=== PATIENT | male | born 1970 | race Caucasian/White ===

== ENCOUNTER → 2017-11-13 16:38 | Outpatient (CLI) | payer OTHER, MEDICAID, SELFPAY ==
[2017-11-13 18:19] LABS: Free T4, Direct Thyroxine 0.94 ng/dL (0.78-2.19)
[2017-11-13 18:33] LABS: Thyroid Stimulating Hormone 0.59 uIU/mL (0.47-4.68)
== END ==
PROVIDERS: Visit Provider Internal Medicine Endocrinology, Diabetes & Metabolism
DX: E03.9 Hypothyroidism, unspecified (principal)
CPT/HCPCS: 36415; 84439; 84443

== ENCOUNTER → 2017-11-24 16:50 | Outpatient (CLI) | payer OTHER, MEDICAID, SELFPAY | PROVIDERS: Visit Provider Internal Medicine Endocrinology, Diabetes & Metabolism | DX: E29.1 Testicular hypofunction (principal); E03.9 Hypothyroidism, unspecified ==

== ENCOUNTER → 2017-12-11 16:58 | Outpatient (CLI) | payer OTHER, MEDICAID, SELFPAY ==
[2017-12-11 18:53] LABS: Testosterone 19.7 ng/dL (132-813)
== END ==
PROVIDERS: Visit Provider Internal Medicine Endocrinology, Diabetes & Metabolism
DX: E03.9 Hypothyroidism, unspecified (principal); E29.1 Testicular hypofunction
CPT/HCPCS: 36415; 84403

== ENCOUNTER → 2018-01-11 17:02 | Outpatient (CLI) | payer OTHER, MEDICAID, SELFPAY ==
[2018-01-14 10:45] LABS: Albumin 4.4 g/dL (3.6-5.1); Sex Hormone Binding Globulin 19 nmol/L (10-50); Testosterone, Bioavailable 158.5 ng/dL (110.0-575.0); Testosterone, Total 394 ng/dL (250-1100); Testosterone,Free 78.8 pg/mL (46.0-224.0)
== END ==
PROVIDERS: PCP Student in an Organized Health Care Education/Training Program; Visit Provider Internal Medicine Endocrinology, Diabetes & Metabolism
DX: E29.1 Testicular hypofunction (principal)
CPT/HCPCS: 36415; 82040; 84270; 84403

== ENCOUNTER → 2018-01-25 17:29 | Outpatient (CLI) | payer OTHER, MEDICAID, SELFPAY ==
[2018-01-29 00:39] LABS: Testosterone Free 73.5 pg/mL (35.0-155.0); Testosterone Total 356 ng/dL (250-1100)
== END ==
PROVIDERS: PCP Student in an Organized Health Care Education/Training Program; Visit Provider Internal Medicine
DX: E03.9 Hypothyroidism, unspecified (principal); E29.1 Testicular hypofunction
CPT/HCPCS: 36415; 84402; 84403

== ENCOUNTER → 2018-02-05 16:58 | Outpatient (CLI) | payer OTHER, MEDICAID, SELFPAY ==
[2018-02-09 15:32] LABS: Testosterone Free 69.2 pg/mL (35.0-155.0); Testosterone Total 347 ng/dL (250-1100)
== END ==
PROVIDERS: Family Provider Internal Medicine; PCP Student in an Organized Health Care Education/Training Program; Visit Provider Internal Medicine Endocrinology, Diabetes & Metabolism
DX: E03.9 Hypothyroidism, unspecified (principal); E29.1 Testicular hypofunction
CPT/HCPCS: 36415; 82533; 84402; 84403

== ENCOUNTER → 2018-03-23 16:57 | Outpatient (CLI) | payer OTHER, MEDICAID, SELFPAY ==
[2018-03-23 18:10] LABS: Thyroid Stimulating Hormone 2.49 uIU/mL (0.47-4.68)
[2018-03-25 18:27] LABS: Testosterone, Free 0.48 ng/dL (0.87-5.47)
== END ==
PROVIDERS: Family Provider Internal Medicine; PCP Student in an Organized Health Care Education/Training Program; Visit Provider Internal Medicine Endocrinology, Diabetes & Metabolism
DX: E29.1 Testicular hypofunction (principal); E03.9 Hypothyroidism, unspecified
CPT/HCPCS: 36415; 84402; 84443

== ENCOUNTER → 2018-05-24 17:50 | Outpatient (CLI) | payer OTHER, MEDICAID, SELFPAY ==
[2018-05-24 19:35] LABS: Thyroid Stimulating Hormone 1.16 uIU/mL (0.47-4.68)
[2018-05-30 14:36] LABS: Testosterone, Free 0.43 ng/dL (0.87-5.47)
== END ==
PROVIDERS: Family Provider Internal Medicine; PCP Student in an Organized Health Care Education/Training Program; Visit Provider Internal Medicine Endocrinology, Diabetes & Metabolism
DX: E03.9 Hypothyroidism, unspecified (principal); E29.1 Testicular hypofunction
CPT/HCPCS: 36415; 84402; 84443

== ENCOUNTER → 2019-07-14 17:50 | Outpatient (CLI) | payer OTHER, MEDICAID, SELFPAY ==
[2019-07-14 19:30] LABS: Alanine Aminotransferase 56 IU/L (<50); Albumin 4.6 g/dL (3.5-5.0); Albumin Globulin Ratio 1.3 (1.0-2.8); Alkaline Phosphatase 72 U/L (38-126); Aspartate Aminotransferase 44 IU/L (17-59); BUN Creatinine Ratio 32.5 (6-22); Bilirubin Total 0.4 mg/dL (0.2-1.3); Blood Urea Nitrogen 26 mg/dL (9-20); Calcium 9.7 mg/dL (8.4-10.2); Carbon Dioxide 29 mmol/L (22-32); Chloride 104 mmol/L (98-107); Estimated Glomerular Filt Rate > 60.0 mL/min (>60); Globulin 3.5 g/dL (1.7-4.1); Glucose 126 mg/dL (70-100); HEMOLYSIS < 15 (0-50); Potassium 4.4 mmol/L (3.4-5.1); Sodium 140 mmol/L (137-145); Total Protein 8.1 g/dL (6.3-8.2)
[2019-07-14 19:51] LABS: Hemoglobin A1C% w Est Avg Glu 5.7 % (4.0-6.0)
[2019-07-14 20:21] LABS: Testosterone 438 ng/dL (71.8-623)
[2019-07-14 20:47] LABS: Thyroid Stimulating Hormone 4.71 uIU/mL (0.47-4.68)
== END ==
PROVIDERS: Internal Medicine Endocrinology, Diabetes & Metabolism; Family Provider Internal Medicine; PCP Student in an Organized Health Care Education/Training Program; Referring Provider Neuromusculoskeletal Medicine & OMM; Visit Provider Neuromusculoskeletal Medicine & OMM
DX: E29.1 Testicular hypofunction (principal); E03.9 Hypothyroidism, unspecified; R73.09 Other abnormal glucose; R35.8 Other polyuria
CPT/HCPCS: 36415; 80053; 83036; 84403; 84443

== ENCOUNTER → 2020-07-10 16:03 | Outpatient (CLI) | payer OTHER, MEDICAID, SELFPAY ==
--- NOTE | 2020-07-10 16:07 | DIET.PN ---
Dietary Progress Note Assessment: 50y M referred to nutrition for help with metabolic disease and lymphedema. 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 Pt using sleeping pills and has been on injected testosterone x10y. Pt attends chiropractic visits 3x/w, has lymphatic manual drainage regularly. Pt does not plan to do competition lifting but wants to be healthy and ripped. Pt unable to sit during RD consult secondary to back pain and chair being uncomfortable. 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 BMI: 34 Labs: A1c 5.7 (1y ago) Usual Day: wakes 3pm 6-7pm 1 Premier protein shake and protein brownie bar *40-50g PRO workout bw 9:30-10:30pm- 2 days chest and back, 2d shoulders and arms super sets, drinks BCAAs and citruline, 3d/w cardio has 30g CHO as Karbolyn, and 40g PRO powder or whey isolate 11:30-midnight: 6oz turkey burger extra lean, 2 corn tortillas, 2 oz guacamole, salsa and 1 bag healthy pop popcorn 1am: quest bar (20g PRO), light and fit yogurt 12g PRO 6 leatha kisses about 3-4d/w 5am: 1 Algerian cheese slice 1.5c egg whites 1 egg 1.5oz turkey meat Goes to bed 6:30am feels rested, takes sleeping pills Drinks three 32oz montoya daily does eat apples a few times per week, likes lettuce in a salad but otherwise no intake fruits/veggies. Pt reports eating this way x5y RD Impression: Pt is consuming diet low in food and high in nutrition supplement products. Pt is very concerned about calorie levels, protein content, carbs, and performance, pt is less concerned about micronutrients, phytochemicals and fiber coming from whole food sources. Food recall shows intake of 200g+ of PRO/d. RD would like to encourage pt to consume more whole foods rather than supplements to support health and vitality. Nutrition Diagnosis: undesirable food choices r/t mixed messaging regarding dietary advice aeb pt consuming more supplements than food, little F/V, pt not seeing relief from lymphedema sx, pt has dx body dysmorphia. Interventions: 1. Discussed benefits of whole foods based diet and role of nutrition supplements in health. 2. Using Cardiometabolic functional food plan as a guide, educated pt on the role of a variety of foods in supporting metabolic health. Used this plan with handout on nutrition for lymphedema to identify areas to consider change in diet. Plan reccs no refined sugar, refined carbs, limiting ultra processed fats, 2g sodium limit, and incorporating more fresh fruits and vegetables. Pt willing to alternate oatmeal c almond butter with protein shake and brownie for breakfasts. Pt willing to cut workout time supplements in half. Pt willing to consider adding lettuce to lunch taco meal. Pt willing to find food based snack to have with yogurt rather than protein bar. Pt willing to sub mild cheddar or mozzarella in place of Algerian cheese at dinnertime. Monitoring/Evaluations: pt will call in 2w to report back dietary changes and if they are helping sx.
[2020-07-10 16:38] VITALS: BMI 34.8
== END ==
PROVIDERS: Family Provider Internal Medicine; PCP Student in an Organized Health Care Education/Training Program; Referring Provider Student in an Organized Health Care Education/Training Program; Visit Provider Student in an Organized Health Care Education/Training Program
DX: E88.9 Metabolic disorder, unspecified (principal); I89.0 Lymphedema, not elsewhere classified; E66.9 Obesity, unspecified; Z71.3 Dietary counseling and surveillance; Z68.34 Body mass index [BMI] 34.0-34.9, adult
CPT/HCPCS: 97802

== ENCOUNTER 2021-05-27 23:35 | Emergency (ER) | payer OTHER, MEDICAID, SELFPAY ==
[2021-05-27 23:49] VITALS: BP 144/87; PULSE 69; RESP 16; TEMP 37.2; O2SAT 99
[2021-05-28 00:03] LABS: COVID19 -Nasal RAPID POSITIVE (Negative)
--- NOTE | 2021-05-28 00:11 | ED_ITS ---
HPI - General Adult General Chief complaint: Upper Respiratory Symptoms Stated complaint: tired/eyes hurt/cough x7 days Time Seen by Provider: 05/27/21 23:44 Source: patient Mode of arrival: Ambulatory History of Present Illness HPI narrative: Patient is a 51-year-old male. On vaccinated against COVID. Is here for evaluation of 7 days of a cough, eye fatigue, feeling tired. No known sick contacts. No fevers. Has not tried anything for symptoms prior to arrival. Related Data Home Medications Medication Instructions Recorded Confirmed losartan 100 mg tablet 100 mg PO DAILY #30 tab 09/16/18 01/30/21 rivaroxaban 20 mg tablet 20 mg PO DAILY #30 tab 09/16/18 01/30/21 Respironics Dreamstation CPAP #1 ea 10/12/18 01/30/21 cyclobenzaprine 10 mg tablet 10 mg PO TID PRN 04/26/19 01/30/21 fluticasone propionate 50 1 spray NASAL ONCE PRN #16 gram 04/26/19 01/30/21 mcg/actuation nasal spray,suspension testosterone enanthate 200 mg/mL 50 mg IM 2XW 30 Days ml 04/26/19 01/30/21 intramuscular oil levothyroxine 200 mcg capsule 200 mcg PO DAILY 11/17/19 01/30/21 levothyroxine 25 mcg capsule 25 mcg PO DAILY 11/17/19 01/30/21 Previous Rx's Medication Instructions Recorded propranolol 20 mg tablet 20 - 40 mg PO BEDTIME #90 tab 12/24/20 quetiapine 25 mg tablet 25 mg PO BEDTIME PRN #30 tab 01/29/21 citalopram 40 mg tablet 40 mg PO DAILY #90 tab 02/14/21 trazodone 50 mg tablet 50 mg PO .COMPLEX PRN #60 tab 03/12/21 lorazepam 0.5 mg tablet See Rx Instructions PO DAILY PRN 05/15/21 #15 tab Allergies Allergy/AdvReac Type Severity Reaction Status Date / Time simvastatin [SIMVASTATIN] AdvReac Severe MM ACHES Verified 01/30/21 15:44 Review of Systems Constitutional Constitutional: Reports as per HPI and Reports system reviewed and no additional complaints, except as documented Eyes Eyes: Reports as per HPI and Reports system reviewed and no additional complaints, except as documented ENT Ears, Nose, Mouth, and Throat: Reports system reviewed and no additional complaints, except as documented Cardiovascular Cardiovascular: Reports system reviewed and no additional complaints, except as documented Respiratory Respiratory: Reports as per HPI and Reports system reviewed and no additional complaints, except as documented Gastrointestinal Gastrointestinal: Reports system reviewed and no additional complaints, except as documented Integumentary/Breasts Skin/Breast: Reports system reviewed and no additional complaints, except as documented Hematologic/Lymphatic On Anticoagulants: No Patient History Medical History Allergic rhinitis Essential hypertension Hyperlipidemia Hypogonadism in male Hypothyroidism Insomnia, psychophysiological Kidney stones Lumbar back pain 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) Obesity (BMI 30-39.9) Obstructive sleep apnea, adult Pulmonary embolus Varicose veins of both lower extremities Family History Father Age: 92 Diabetes mellitus Hypertension Mother Age: 88 Diabetes mellitus Heart disease Hypertension Social History marital status: number of children: 1 lives independently: Yes caregiver/support person: No education level: college Smoking Status: Never smoker Smoking Status: Never smoker Exam Initial Vital Signs Initial Vital Signs: Vital Signs Temperature 98.9 F 05/27/21 23:49 Pulse Rate 69 05/27/21 23:49 Respiratory Rate 16 05/27/21 23:49 Blood Pressure 144/87 H 05/27/21 23:49 Pulse Oximetry 99 05/27/21 23:49 HENMT Head: normal to inspection and normocephalic Eyes General: appearance normal, both eyes and all related structures Resp Effort & Inspection: normal respiratory effort Auscultation: clear to auscultation bilaterally Cardio Rate: regular rate Rhythm: regular rhythm Skin General: no rashes or lesions noted Neuro General: patient alert, patient awake and moves all extremities Extrem General: normal to inspection and capillary refill normal Psych Appearance: grossly normal Course Orders Ordered: ED Orders 05/27/21 23:48 COVID19 -Nasal swab/Pre-Proc Stat Vital Signs Vital signs: Vital Signs - 8 hr 05/27/21 23:49 Temperature 98.9 F Pulse Rate 69 Respiratory Rate 16 Blood Pressure 144/87 H Pulse Oximetry 99 Medical Decision Making Lab Data Labs: Lab Results 05/27/21 Range/Units 23:48 SARS-CoV-2 (PCR) Positive H (Negative) MDM Narrative Medical decision making narrative: Patient is COVID positive and this does explain his presenting symptoms. Respiratory distress. Not hypoxic. Clear lungs. No indication for antibiotics. He was informed of his positive result. He was given return precautions and follow-up instructions. He expressed understanding and agreement. Discharge Plan Departure Patient Disposition: Home Clinical Impression: COVID-19 Instructions: DI for COVID-19 (Suspected or Confirmed ) Activity Restrictions/Additional Instructions: Your COVID test today was positive. Continues take all of your medications as directed. Follow current CDC guidelines with regard to quarantine. Contact your primary doctor for a follow-up. Return to the emergency department for any new or worsening symptoms. Prescriptions: No Action losartan 100 mg tablet 100 mg PO DAILY Qty: 30 0RF Xarelto 20 mg tablet 20 mg PO DAILY Qty: 30 0RF fluticasone propionate 50 mcg/actuation spray,suspension 1 spray NASAL ONCE PRNQty: 16 0RF testosterone enanthate 200 mg/mL oil 50 mg IM 2XW 30 Days 0RF cyclobenzaprine 10 mg tablet 10 mg PO TID PRN0RF levothyroxine 200 mcg capsule 200 mcg PO DAILY 0RF levothyroxine 25 mcg capsule 25 mcg PO DAILY 0RF quetiapine 25 mg tablet 25 mg PO BEDTIME PRN (Reason: insomnia) Qty: 30 5RF propranolol 20 mg tablet 20 - 40 mg PO BEDTIME Qty: 90 1RF Rx Instructions: at bedtime for severe anxiety citalopram 40 mg tablet 40 mg PO DAILY Qty: 90 3RF trazodone 50 mg tablet 50 mg PO .COMPLEX PRN (Reason: anxiety) Qty: 60 5RF Rx Instructions: 50 mg PO PRN 1-2h before bedtime, and 50mg at bedtime lorazepam 0.5 mg tablet See Rx Instructions PO DAILY PRN (Reason: severe panic) Qty: 15 1RF Rx Instructions: 0.5mg-1mg PO daily PRN; avoid daily dosing which can cause worsening panic (DME) Respironics Dreamstation CPAP Qty: 1 0RF Dose Instruction: As directed Label Comments: Pressure: 8-14 cmH2O DME: [facility] Rx Instructions: As directed Referrals: Miscellaneous,Doctor, MD [Primary Care Provider] -
== END 2021-05-28 00:22 | disposition home or self-care (01) ==
PROVIDERS: Emergency Provider Emergency Medicine; Family Provider Internal Medicine
DX: U07.1 COVID-19 (principal)
CPT/HCPCS: 87635; 99281; 99282; C9803

== ENCOUNTER 2023-04-03 00:20 | Emergency (ER) | payer OTHER, MEDICAID, SELFPAY ==
[2023-04-03] VITALS (11 sets, daily range): BP systolic 111–147; BP diastolic 57–80; PULSE 72–83; RESP 16–24; TEMP 35.9–36.6; O2SAT 92–99; BMI 31.6
[2023-04-03] MEDS: ONDANSETRON 4 MG/2 ML INJ IV (00:35)
[2023-04-03] MEDS: SODIUM CHLORIDE 0.9% 1,000 ML 1000 ML IV (00:35)
[2023-04-03 00:40] LABS: Add Manual Diff / Slide Review NO; Basophils Absolute Auto 0 /uL (0-100); Basophils Percent Auto 0.1 % (0-2); Eosinophils Absolute Auto 100 /uL (0-450); Eosinophils Percent Auto 0.3 % (2-4); Lymphocytes Absolute Auto 700 /uL (1100-4500); Lymphocytes Percent Auto 3.8 % (25-40); Mean Corpuscular HGB Conc 32.6 % (30-36); Mean Corpuscular Hemoglobin 24.7 PG (26-34); Mean Corpuscular Volume 75.6 fL (80-100); Monocytes Absolute Auto 700 /uL (0-900); Monocytes Percent Auto 3.7 % (3-14); Neutrophils Absolute Auto 16800 /uL (1500-7000); Neutrophils Percent Auto 92.1 % (50-75); Platelet Count 234 X10^3/uL (150-400); Red Blood Cell Count 6.47 X10^6/uL (4.5-5.9); Red Cell Distribution Width 18.7 % (11.6-14.8); White Blood Cell Count 18.2 X10^3/uL (4.5-11.0)
--- NOTE | 2023-04-03 00:41 | ED_ITS ---
HPI - Nausea/Vomiting/Diarrhea General Chief complaint: Nausea/Vomiting/Diarrhea Stated complaint: syncope V/D Time Seen by Provider: 04/03/23 00:32 Source: patient and EMS Mode of arrival: EMS History of Present Illness HPI Narrative: Patient comes to the ED with sudden onset vomiting and diarrhea. Was in his usual state of health earlier today taking care of his father. He was on his way to the gym when he suddenly developed profuse sweats and he felt like he was going to black out so he went home and called the ambulance. He had a number of episodes of nonbloody diarrhea at home and then upon arrival of the paramedics he vomited a number of times. Nonbloody emesis. He has vague abdominal discomfort but no overt pain. No fever. Was well entirely earlier today. Gets lymphedema treatments with percussion and laser treatments and child care giver multiple times a week. Related Data Home Medications Medication Instructions Recorded Confirmed losartan 100 mg tablet 100 mg PO DAILY #30 tabs 09/16/18 01/31/22 rivaroxaban 20 mg tablet 20 mg PO DAILY #30 tabs 09/16/18 01/31/22 Respironics Dreamstation CPAP #1 ea 10/12/18 01/31/22 cyclobenzaprine 10 mg tablet 10 mg PO TID PRN 04/26/19 01/31/22 fluticasone propionate 50 1 spray intranasal ONCE PRN #16 04/26/19 01/31/22 mcg/actuation nasal grams spray,suspension testosterone enanthate 200 mg/mL 50 mg IM 2XW 30 days 04/26/19 01/31/22 intramuscular oil levothyroxine 200 mcg capsule 200 mcg PO DAILY 11/17/19 01/31/22 levothyroxine 25 mcg capsule 25 mcg PO DAILY 11/17/19 01/31/22 chlorthalidone 50 mg tablet 50 mg PO DAILY 11/05/21 01/31/22 tamsulosin 0.4 mg capsule 0.4 mg PO DAILY 11/05/21 01/31/22 Previous Rx's Medication Instructions Recorded citalopram 40 mg tablet 40 mg PO DAILY #90 tabs 01/16/23 quetiapine 25 mg tablet 25 mg PO BEDTIME PRN insomnia #30 03/23/23 tabs trazodone 50 mg tablet 50 mg PO .COMPLEX #60 tabs 03/23/23 lorazepam 0.5 mg tablet 0.5 mg PO DAILY PRN severe 04/01/23 insomnia #10 tabs Allergies Allergy/AdvReac Type Severity Reaction Status Date / Time simvastatin [SIMVASTATIN] AdvReac Severe MM ACHES Verified 04/03/23 00:40 Patient History Medical History Allergic rhinitis Essential hypertension Hyperlipidemia Hypogonadism in male Hypothyroidism Insomnia, psychophysiological Kidney stones 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 back pain 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 Normocephalic. EYES: Sclera are clear without icterus. ENT: No rhinorrhea. NECK: Supple. Full range of motion. CARDIOVASCULAR: Normal rate and rhythm without murmur gallop or rub. RESPIRATORY: Clear to auscultation. Breath sounds equal bilaterally. No wheezes, rales, or rhonchi. GASTROINTESTINAL: Abdomen soft, non-tender, nondistended. EXTREMITIES: No edema, full range of motion. No obvious trauma. BACK: Normal inspection, no CVA tenderness. NEURO: Nonfocal examination, normal speech, normal gait. SKIN: No rash or erythema of visible areas, somewhat mottled PSYCH: Normally oriented. Normal range of affect. Appropriate behavior Initial Vital Signs Initial Vital Signs: Vital Signs Pulse Rate 72 04/03/23 00:23 Respiratory Rate 21 04/03/23 00:23 Course Orders Ordered: ED Orders 04/03/23 00:27 EKG-12 Lead Stat 04/03/23 00:33 Complete Blood Count AUTO DIFF Stat Comprehensive Metabolic Panel Stat Lipase Stat 04/03/23 01:31 Blood Culture Stat Lactate (Lactic Acid) Stat Sodium Chloride (Normal Saline 0.9%) 1,000 mls @ 1,000 mls/hr IV BOLUS ONE Stop: 04/03/23 01:41 Last Admin: 04/03/23 01:23 Dose: Not Given Sodium Chloride (Normal Saline 0.9%) 1,000 mls @ 21 mls/hr IV NOW ONE Stop: 04/05/23 00:51 Last Admin: 04/03/23 01:17 Dose: 21 mls/hr Ondansetron HCl (Ondansetron 4 Mg/2 Ml Inj) 4 mg IV NOW PRN PRN Reason: Nausea And Vomiting Last Admin: 04/03/23 00:35 Dose: 4 mg Documented By: CHARLES Ondansetron HCl (Ondansetron 4 Mg/2 Ml Inj) 4 mg IV Q2HR PRN PRN Reason: Nausea And Vomiting Discontinued Medications Sodium Chloride (Normal Saline 0.9%) 1,000 mls @ 1,000 mls/hr IV BOLUS ONE Stop: 04/03/23 01:27 Last Admin: 04/03/23 00:35 Dose: 1,000 mls/hr Documented By: CHARLES Loperamide HCl (Loperamide 2 Mg Capsule) 4 mg PO NOW ONE Stop: 04/03/23 00:43 Last Admin: 04/03/23 01:05 Dose: 4 mg Vital Signs Vital signs: Vital Signs - 8 hr 04/03/23 00:23 04/03/23 00:25 04/03/23 00:25 Temperature Pulse Rate 72 73 Respiratory Rate 21 18 Blood Pressure 116/73 Pulse Oximetry 92 Oxygen Delivery Method 04/03/23 00:28 04/03/23 00:30 04/03/23 00:30 Temperature 96.7 F L Pulse Rate 72 72 Respiratory Rate 16 22 Blood Pressure 116/73 121/67 Pulse Oximetry 96 95 Oxygen Delivery Method Room Air MDM - Nausea/Vomiting/Diarrhea Lab Data 04/03/23 00:33 04/03/23 00:33 Labs: Lab Results 04/03/23 Range/Units 00:33 WBC 18.2 H (4.5-11.0) X10^3/uL RBC 6.47 H (4.5-5.9) X10^6/uL Hgb 16.0 (13.5-17.5) g/dL Hct 49.0 (41-53) % MCV 75.6 L (80-100) fL MCH 24.7 L (26-34) PG MCHC 32.6 (30-36) % RDW 18.7 H (11.6-14.8) % Plt Count 234 (150-400) X10^3/uL Neut % (Auto) 92.1 H (50-75) % Lymph % (Auto) 3.8 L (25-40) % Mccreary % (Auto) 3.7 (3-14) % Eos % (Auto) 0.3 L (2-4) % Baso % (Auto) 0.1 (0-2) % Neut # (Auto) 21524 H (8332-8112) /uL Lymph # (Auto) 700 L (5160-0199) /uL Mccreary # (Auto) 700 (0-900) /uL Eos # (Auto) 100 (0-450) /uL Baso # (Auto) 0 (0-100) /uL Sodium 135 L (137-145) mmol/L Potassium 3.5 (3.4-5.1) mmol/L Chloride 97 L (98-107) mmol/L Carbon Dioxide 23 (22-32) mmol/L BUN 34 H (9-20) mg/dL Creatinine 0.95 (0.66-1.25) mg/dL Estimated GFR > 60 (>60) mL/min BUN/Creatinine Ratio 35.8 H (6-22) Glucose 259 H (70-100) mg/dL Calcium 10.0 (8.4-10.2) mg/dL Total Bilirubin 0.9 (0.2-1.3) mg/dL AST 53 (17-59) IU/L ALT 60 H (<50) IU/L Alkaline Phosphatase 61 (38-126) U/L Total Protein 8.8 H (6.3-8.2) g/dL Albumin 4.8 (3.5-5.0) g/dL Globulin 4.0 (1.7-4.1) g/dL Albumin/Globulin Ratio 1.2 (1.0-2.8) Lipase 250 (23-300) U/L ECG Data Interpretation: ECG obtained at 0028 shows sinus rhythm at 70 see 73 beats per minute QTC is 486. There is a nonspecific intraventricular conduction delay. Nonspecific STT wave changes. Discharge Plan Departure Prescriptions: No Action losartan 100 mg tablet 100 mg PO DAILY Qty: 30 Xarelto 20 mg tablet 20 mg PO DAILY Qty: 30 fluticasone propionate 50 mcg/actuation spray,suspension 1 spray NASAL ONCE PRNQty: 16 chlorthalidone 50 mg tablet 50 mg PO DAILY Patient Comments: TAKE 1 TABLET BY MOUTH DAILY tamsulosin 0.4 mg capsule 0.4 mg PO DAILY testosterone enanthate 200 mg/mL oil 50 mg IM 2XW 30 Days cyclobenzaprine 10 mg tablet 10 mg PO TID PRN levothyroxine 200 mcg capsule 200 mcg PO DAILY levothyroxine 25 mcg capsule 25 mcg PO DAILY citalopram 40 mg tablet 40 mg PO DAILY Qty: 90 3RF quetiapine 25 mg tablet 25 mg PO BEDTIME PRN (Reason: insomnia) Qty: 30 2RF trazodone 50 mg tablet 50 mg PO .COMPLEX MDD 100MG Qty: 60 2RF Rx Instructions: 50 mg orally 50mg 1-2 hours prior to sleep, then 50mg at bedtime each night; lorazepam 0.5 mg tablet 0.5 mg PO DAILY PRN (Reason: severe insomnia) Qty: 10 0RF Rx Instructions: 10 pills per month maximum. (DME) Respironics Dreamstation CPAP Qty: 1 Dose Instruction: As directed Patient Comments: Pressure: 8-14 cmH2O DME: [facility] Rx Instructions: As directed Referrals: Miscellaneous,Doctor, [Primary Care Provider] -
[2023-04-03 00:50] LABS: Alanine Aminotransferase 60 IU/L (<50); Albumin 4.8 g/dL (3.5-5.0); Albumin Globulin Ratio 1.2 (1.0-2.8); Alkaline Phosphatase 61 U/L (38-126); Aspartate Aminotransferase 53 IU/L (17-59); BUN Creatinine Ratio 35.8 (6-22); Bilirubin Total 0.9 mg/dL (0.2-1.3); Blood Urea Nitrogen 34 mg/dL (9-20); Carbon Dioxide 23 mmol/L (22-32); Chloride 97 mmol/L (98-107); Estimated Glomerular Filt Rate > 60 mL/min (>60); Glucose 259 mg/dL (70-100); HEMOLYSIS 16 (0-50); Lipase 250 U/L (23-300); Potassium 3.5 mmol/L (3.4-5.1); Sodium 135 mmol/L (137-145); Total Protein 8.8 g/dL (6.3-8.2)
[2023-04-03] MEDS: LOPERAMIDE 2 MG CAPSULE 4 MG PO (01:05)
[2023-04-03] MEDS: SODIUM CHLORIDE 0.9% 1,000 ML 21 ML IV (01:17)
[2023-04-03 02:10] LABS: Lactate (Lactic Acid) 1.8 mmol/L (0.7-2.1)
--- NOTE | 2023-04-03 02:25 | PC.NURSE ---
Per verbal order from Dr. Meng, 0.9NS infusion increased to 999ml/hr.
== END 2023-04-03 03:50 | disposition home or self-care (01) ==
PROVIDERS: Emergency Provider Family Medicine Addiction Medicine; Family Provider Internal Medicine
DX: R11.2 Nausea with vomiting, unspecified (principal); R19.7 Diarrhea, unspecified; R10.9 Unspecified abdominal pain; Z79.899 Other long term (current) drug therapy
CPT/HCPCS: 36415; 80053; 83605; 83690; 85025; 87040; 93005; 93010; 96361; 96374; 99284; J2405

== ENCOUNTER 2023-12-05 03:14 | Emergency (ER) | payer OTHER, MEDICAID, SELFPAY ==
[2023-12-05 03:18] VITALS: BP 138/74; PULSE 89; O2SAT 97
[2023-12-05 03:19] VITALS: BP 138/74; PULSE 89; RESP 18; TEMP 36.8; O2SAT 96; BMI 32.3
--- NOTE | 2023-12-05 03:27 | DI.RAD.S_ITS ---
PROCEDURE: XR CHEST 2V INDICATIONS: R SIDED CHEST/LOWER BACK PAIN TECHNIQUE: 2 views of the chest were acquired. COMPARISON: [facility], , CHEST 2 VIEW, 11/21/2013, 14:58. FINDINGS: Surgical changes and devices: None. Lungs and pleura: Lungs are clear. No pleural effusions or pneumothorax. Mediastinum: Mediastinal contours are normal. Heart size is normal. Bones and chest wall: No suspicious bony abnormalities. Soft tissues appear unremarkable. IMPRESSION: No acute cardiopulmonary abnormality is seen. No focal consolidation. Dictated by: Jordan Chauhan M.D. on 12/05/2023 at 8:35 Approved by: Jordan Chauhan M.D. on 12/05/2023 at 8:35
--- NOTE | 2023-12-05 03:27 | ED.BACK ---
HPI - Back Pain/Injury General Chief Complaint: Back Pain/Injury Stated Complaint: pain rt side lower back Time Seen by Provider: 12/05/23 03:15 Source: patient History of Present Illness HPI Narrative: 53-year-old male with history of PE on Xarelto presents for evaluation of right side pain x1 day. Patient states that he noticed some pain while he was at the gym earlier today. It is constant, worse with movement and palpation, does not radiate. Denies shortness of breath or chest pain. No change with respirations. Patient states that he has had muscle spasms in the past but never in this location and is concerned that he may have a pulmonary embolism again. He reports that he was 100% compliant with his Xarelto and has not missed any doses. Related Data Home Medications Medication Instructions Recorded Confirmed losartan 100 mg tablet 100 mg PO DAILY #30 tabs 09/16/18 01/31/22 rivaroxaban 20 mg tablet 20 mg PO DAILY #30 tabs 09/16/18 01/31/22 Respironics Dreamstation CPAP #1 ea 10/12/18 01/31/22 cyclobenzaprine 10 mg tablet 10 mg PO TID PRN 04/26/19 01/31/22 fluticasone propionate 50 1 spray intranasal ONCE PRN #16 04/26/19 01/31/22 mcg/actuation nasal grams spray,suspension testosterone enanthate 200 mg/mL 50 mg IM 2XW 30 days 04/26/19 01/31/22 intramuscular oil levothyroxine 200 mcg capsule 200 mcg PO DAILY 11/17/19 01/31/22 levothyroxine 25 mcg capsule 25 mcg PO DAILY 11/17/19 01/31/22 chlorthalidone 50 mg tablet 50 mg PO DAILY 11/05/21 01/31/22 tamsulosin 0.4 mg capsule 0.4 mg PO DAILY 11/05/21 01/31/22 Previous Rx's Medication Instructions Recorded citalopram 40 mg tablet 40 mg PO DAILY #90 tabs 01/16/23 ondansetron 4 mg disintegrating 4 mg PO Q6H #20 tabs 04/03/23 tablet quetiapine 25 mg tablet 25 mg PO BEDTIME PRN insomnia #30 08/24/23 tabs trazodone 50 mg tablet 50 mg PO .COMPLEX #60 tabs 11/06/23 lorazepam 0.5 mg tablet 0.5 mg PO DAILY PRN severe 11/25/23 insomnia #10 tabs Allergies Allergy/AdvReac Type Severity Reaction Status Date / Time simvastatin [SIMVASTATIN] AdvReac Severe MM ACHES Verified 04/03/23 00:40 Patient History Medical History Hypogonadism in male Kidney stones Varicose veins of both lower extremities Lumbar back pain Obstructive sleep apnea, adult Obesity (BMI 30-39.9) Hypothyroidism Insomnia, psychophysiological Hyperlipidemia 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) Pulmonary embolus Family History Father Age: 95 Diabetes mellitus Hypertension Mother Age: 91 Diabetes mellitus Heart disease Hypertension Social History marital status: number of children: 1 lives independently: Yes caregiver/support person: No education level: college Smoking Status: Never smoker Smoking Status: Never smoker Substance Use Type: does not use Exam Initial Vital Signs Initial Vital Signs: Vital Signs Pulse Rate 89 12/05/23 03:18 Blood Pressure 138/74 12/05/23 03:18 Pulse Oximetry 97 12/05/23 03:18 Const: Awake, alert, no acute distress, nontoxic appearing Cardiac: regular rate, regular rhythm RESP: unlabored, clear bilaterally, no wheezing MSK: Right-sided tenderness to palpation right side mid axillary line near oblique abdominal muscles Skin: Warm, Dry, intact, no rashes Neuro: AO x3, CN II-XII grossly intact, moves all extremities Course Vital Signs Vital signs: Vital Signs - 8 hr 12/05/23 03:19 Temperature 98.2 F Pulse Rate 89 Respiratory Rate 18 Blood Pressure 138/74 Pulse Oximetry 96 Oxygen Delivery Method Room Air MDM - Back Pain/Injury Differential Diagnosis Differential diagnosis: Likely lumbar radiculopathy, sciatica and strain of lumbar region ECG Data Interpretation: Normal sinus rhythm at 78 beats per minute. Normal OK, no ST T wave changes, no STEMI. Nonspecific intraventricular conduction delay, unchanged from EKG in 2022 MDM Narrative Medical decision making narrative: Well-appearing patient with isolated right side pain over oblique muscles at base of ribcage. No pleuritic pain. Patient was reported history of pulmonary embolism but has been compliant with his Xarelto. Symptoms started after going to the gym, this is likely musculoskeletal strain. X-ray negative for acute findings. EKG is unchanged from multiple previous EKGs. Patient counseled to take Tylenol as needed for pain and to apply gentle stretching exercises. Discharge Plan Departure Patient Disposition: Home Clinical Impression: Acute right-sided back pain Instructions: DI for Muscle Strain Activity Restrictions/Additional Instructions: Your EKG and chest x-ray are reassuring. Continue to take your Xarelto as prescribed. Take Tylenol as needed for pain and apply ice as needed to areas of discomfort Prescriptions: No Action losartan 100 mg tablet 100 mg PO DAILY Qty: 30 Xarelto 20 mg tablet 20 mg PO DAILY Qty: 30 fluticasone propionate 50 mcg/actuation spray,suspension 1 spray NASAL ONCE PRNQty: 16 chlorthalidone 50 mg tablet 50 mg PO DAILY Patient Comments: TAKE 1 TABLET BY MOUTH DAILY tamsulosin 0.4 mg capsule 0.4 mg PO DAILY testosterone enanthate 200 mg/mL oil 50 mg IM 2XW 30 Days cyclobenzaprine 10 mg tablet 10 mg PO TID PRN levothyroxine 200 mcg capsule 200 mcg PO DAILY levothyroxine 25 mcg capsule 25 mcg PO DAILY citalopram 40 mg tablet 40 mg PO DAILY Qty: 90 3RF quetiapine 25 mg tablet 25 mg PO BEDTIME PRN (Reason: insomnia) Qty: 30 3RF trazodone 50 mg tablet 50 mg PO .COMPLEX MDD 100MG Qty: 60 2RF Rx Instructions: 50 mg orally 50mg 1-2 hours prior to sleep, then 50mg at bedtime each night; lorazepam 0.5 mg tablet 0.5 mg PO DAILY PRN (Reason: severe insomnia) Qty: 10 0RF Rx Instructions: 10 pills per month maximum. ondansetron 4 mg tablet,disintegrating 4 mg PO Q6H Qty: 20 0RF (DME) Respironics Dreamstation CPAP Qty: 1 Dose Instruction: As directed Patient Comments: Pressure: 8-14 cmH2O DME: [facility] Rx Instructions: As directed Referrals: Miscellaneous,Doctor, MD [Primary Care Provider] - Stand Alone Forms: Patient Portal/API
[2023-12-05 03:30] VITALS: BP 131/66; PULSE 80
--- NOTE | 2023-12-05 03:37 | EKG_ITS ---
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
--- NOTE | 2023-12-05 04:13 | EKG_ITS ---
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
== END 2023-12-05 04:25 | disposition home or self-care (01) ==
PROVIDERS: Emergency Provider Emergency Medicine; Family Provider Internal Medicine
DX: M54.50 Low back pain, unspecified (principal); R07.9 Chest pain, unspecified; Z79.899 Other long term (current) drug therapy
CPT/HCPCS: 71046; 93005; 93010; 99281; 99284